=== PATIENT | female | born 2000 | race Caucasian/White ===

== ENCOUNTER → 2021-09-09 09:51 | Outpatient (BNVA) | payer OTHER, SELFPAY | PROVIDERS: Visit Provider Emergency Medicine | DX: J02.9 Acute pharyngitis, unspecified (principal); R68.89 Other general symptoms and signs | CPT/HCPCS: 87400; 87880 ==

== ENCOUNTER → 2022-06-02 10:59 | Outpatient (BNVA) | payer OTHER, SELFPAY | PROVIDERS: Visit Provider Nurse Practitioner Family | DX: M62.830 Muscle spasm of back (principal) | CPT/HCPCS: 72070 ==